=== PATIENT | male | born 1950 | race Caucasian/White ===

== ENCOUNTER 2021-11-20 04:58 | Day surgery (SDC) | payer OTHER ==
[2021-11-18 15:01] VITALS: BMI 25.5
[2021-11-20 09:08] VITALS: TEMP 97.7
[2021-11-20 11:19] VITALS: BP 107/71; PULSE 69
== END 2021-11-20 10:00 | disposition home or self-care (01) ==
LOC: JASU-ENDO 04:58
PROVIDERS: ATTEND Internal Medicine Gastroenterology
PROC: 0DJD8ZZ Inspection of Lower Intestinal Tract, Via Natural or Artificial Opening Endoscopic (ICD-10-PCS; principal; 2021-11-20 08:45)
DX: Z12.11 Encounter for screening for malignant neoplasm of colon (principal); K64.8 Other hemorrhoids